=== PATIENT | male | born 1970 | race Caucasian/White ===

== ENCOUNTER → 2017-11-04 10:49 | Outpatient (CLI) | payer OTHER, SELFPAY ==
[2017-11-04 12:48] LABS: Free T3 3.1 pg/mL (2.18-3.98); T4 Free Direct 1.11 ng/dL (0.76-1.46); Thyroid Stim Hormone (TSH) 1.84 uIU/mL (0.358-3.74)
== END ==
PROVIDERS: Visit Provider Family Medicine
DX: E03.9 Hypothyroidism, unspecified (principal)
CPT/HCPCS: 36415; 84439; 84443; 84481

== ENCOUNTER → 2018-03-04 11:30 | Outpatient (CLI) | payer OTHER, SELFPAY ==
--- NOTE | 2018-03-04 16:09 | STRESSREP ---
Stress Test Report Treadmill EKG: Resting EKG: Normal sinus rhythm, normal axis, normal intervals, no evidence of previous myocardial infarction. Treadmill EKG: The patient exercise according to a Duran protocol for 9 minutes and 0 seconds achieving a maximum workload of 10.10 M ETS. Resting heart rate was initially 60 beats a minute iggy to max of 151 bpm which are presents 86% of the maximal age-predicted heart rate. Resting blood pressure was 138/86 and iggy to max of 190/80. Test was terminated due to leg discomfort. During exercise the patient's heart rate increased as expected. Patient had no dynamic EKG changes to suggest ischemia. No arrhythmias noted. Conclusions normal, adequate treadmill EKG. Negative for ischemia by EKG criteria. No anginal symptoms noted. No arrhythmias noted. Appropriate blood pressure response to exercise. Average exercise capacity for age. No complications.
== END ==
PROVIDERS: Visit Provider Family Medicine
DX: R07.9 Chest pain, unspecified (principal); R00.2 Palpitations
CPT/HCPCS: 93017

== ENCOUNTER → 2019-07-22 09:13 | Outpatient (CLI) | payer OTHER, SELFPAY ==
[2019-07-22 12:24] LABS: Basophil# 0.07 X10^3/uL; Basophil% 1.7 % (0-1); Eosinophils% 7.1 % (0-5); Hematocrit 50.2 % (40-54); Hemoglobin 17.1 g/dL (13.0-16.5); Lymphocyte % 35.6 % (19-41); Mean Corp Hgb Conc 34.1 g/dL (32-36); Mean Corpuscular Hgb 33.3 pg (27.0-32.0); Mean Corpuscular Volume 97.7 fL (80-94); Mean Platelet Vol. 10.2 fl (6.2-12.0); Monocyte# 0.29 X10^3/uL; Monocyte% 6.9 % (0-10); NRBC Flagged by Analyzer 0 % (0-5); Neutrophil # 2.04 X10^3/uL (2.7-7.7); Neutrophil % 48.5 % (47-70); Platelet Count 141 K/mm3 (150-450); RBC Distribution Width CV 11.6 % (11.6-14.6); Red Blood Count 5.14 M/mm3 (4.6-6.2); White Blood Count 4.2 K/mm3 (4.4-11.0)
[2019-07-22 12:53] LABS: ALB/GLOB Ratio 1.3 RATIO (0.9-2.4); AST(SGOT) 44 U/L (15-37); Alanine Aminotransfer ALT/SGPT 64 U/L (16-61); Albumin, Serum 3.9 g/dL (3.2-5.0); Alkaline Phosphatase 85 U/L (45-117); Anion Gap 7 (5-15); BUN 13 mg/dL (7-18); BUN/Creat Ratio 12.9 RATIO (10-20); Calcium,Total 9.4 mg/dL (8.5-10.1); Chloride 110 mmol/L (98-107); Cholesterol 214 mg/dL (200); Creatinine, Serum 1.01 mg/dL (0.70-1.30); EST Glomerular Filtration Rate 84 mL/min (>60); Est Glom Filt Rate - Afr Amer 102 mL/min (>60); Glucose 106 mg/dL (74-106); High Density Lipoprotein 42 mg/dL; Protein, Total 6.9 g/dL (6.4-8.2); Sodium Level 142 mmol/L (136-145); Thyroid Stim Hormone (TSH) 3.71 uIU/mL (0.358-3.74); Triglycerides 146 mg/dL; Very Low Density Lipoprotein 29 mg/dL (5-40)
== END ==
PROVIDERS: PCP Family Medicine; Visit Provider Family Medicine
DX: E03.9 Hypothyroidism, unspecified (principal); E78.5 Hyperlipidemia, unspecified; F31.9 Bipolar disorder, unspecified
CPT/HCPCS: 36415; 80053; 80061; 84443; 85025

== ENCOUNTER → 2020-02-10 09:17 | Outpatient (CLI) | payer OTHER, SELFPAY ==
[2020-02-10 12:45] LABS: AST(SGOT) 70 U/L (15-37); Alanine Aminotransfer ALT/SGPT 78 U/L (16-61); Albumin, Serum 3.8 g/dL (3.2-5.0); Alkaline Phosphatase 91 U/L (45-117); Bilirubin, Direct 0.37 mg/dL (0.00-0.30); Globulin 3.4 g/dL (2.2-4.2); Protein, Total 7.2 g/dL (6.4-8.2); Thyroid Stim Hormone (TSH) 7.92 uIU/mL (0.358-3.74)
== END ==
PROVIDERS: PCP Family Medicine; Visit Provider Family Medicine
DX: E03.9 Hypothyroidism, unspecified (principal); R74.0 Nonspecific elevation of levels of transaminase and lactic acid dehydrogenase [LDH]
CPT/HCPCS: 36415; 80076; 84443

== ENCOUNTER → 2020-02-22 09:51 | Outpatient (CLI) | payer OTHER, SELFPAY ==
--- NOTE | 2020-02-22 09:55 | US_ITS ---
STUDY: ABDOMINAL ULTRASOUND - RIGHT UPPER QUADRANT REASON FOR VISIT: Male, 50 years old elevated liver enzymes TECHNIQUE: Ultrasound evaluation of the right upper quadrant was performed with real-time and static marsh-scale imaging. TECHNICAL QUALITY: Adequate. COMPARISON: None. FINDINGS: Liver: The liver measures 18.0 cm. There is increased echogenicity consistent with fatty infiltration. The bile ducts are within normal limits. There is hepatic color flow. The direction of portal flow is hepatopetal. There is no demonstrated mass lesion. Gallbladder: Normal distended gallbladder. The gallbladder wall measures 2.7 mm. There is a negative sonographic Patel''s sign. There is no pericholecystic fluid. There are multiple echogenic structures within the gallbladder, consistent with multiple gallstones. Common Bile Duct (C.B.D.): The common bile duct measures 3.4 mm. Pancreas: There is nonvisualization of the pancreas due to overlying bowel gas. Right Kidney: Normal size of the right kidney. The right kidney measures 12.8 cm x 5.8 cm x 4.9 cm. Normal renal cortex. The right cortex measures 1.5 cm. There is no demonstrated renal mass or cyst. There is no right hydronephrosis. US/Abdomen Limited IMPRESSION: Fatty infiltration of the liver. Multiple gallstones. Electronically Signed: Layo Diaz, at 11:02 EDT , Service support ,
== END ==
PROVIDERS: PCP Family Medicine; Referring Provider Family Medicine; Visit Provider Family Medicine
DX: R74.0 Nonspecific elevation of levels of transaminase and lactic acid dehydrogenase [LDH] (principal)
CPT/HCPCS: 76705

== ENCOUNTER → 2020-04-13 09:32 | Outpatient (CLI) | payer OTHER, SELFPAY | PROVIDERS: PCP Family Medicine; Visit Provider Family Medicine | DX: E03.9 Hypothyroidism, unspecified (principal) | CPT/HCPCS: 36415; 84443 ==

== ENCOUNTER → 2020-07-28 12:05 | Outpatient (CLI) | payer MEDICAID, SELFPAY ==
[2020-07-28 15:43] LABS: Absolute Lymphocyte Count 1.32 X10^3/uL (0.83-4.51); Absolute Neutrophil Count 2.3 X10^3/uL (2.0-7.7); Basophil# 0.05 X10^3/uL; Basophil% 1.2 % (0-1); Eosinophil# 0.12 X10^3/uL; Eosinophils% 2.8 % (0-5); Hematocrit 46.3 % (40-54); Lymphocyte # 1.32 X10^3/ul (4.0); Mean Corp Hgb Conc 34.6 g/dL (32-36); Mean Corpuscular Hgb 34.9 pg (27.0-32.0); Mean Corpuscular Volume 100.9 fL (80-94); Mean Platelet Vol. 9.7 fl (6.2-12.0); Monocyte# 0.42 X10^3/uL; Monocyte% 9.9 % (0-10); NRBC Flagged by Analyzer 0 % (0-5); Neutrophil # 2.34 X10^3/uL (2.7-7.7); Neutrophil % 54.9 % (47-70); POSITIVE COUNT YES; Platelet Count 70 K/mm3 (150-450); RBC Distribution Width CV 12.9 % (11.6-14.6); RBC Distribution Width SD 48.2 fl (35.1-43.9); Red Blood Count 4.59 M/mm3 (4.6-6.2); White Blood Count 4.3 K/mm3 (4.4-11.0)
[2020-07-28 15:56] LABS: ALB/GLOB Ratio 1.2 RATIO (0.9-2.4); AST(SGOT) 95 U/L (15-37); Alanine Aminotransfer ALT/SGPT 63 U/L (16-61); Albumin, Serum 3.8 g/dL (3.2-5.0); Alkaline Phosphatase 97 U/L (45-117); Anion Gap 4 (5-15); BUN 6 mg/dL (7-18); BUN/Creat Ratio 7.1 RATIO (10-20); Chloride 108 mmol/L (98-107); Creatinine, Serum 0.85 mg/dL (0.70-1.30); EST Glomerular Filtration Rate 102 mL/min (>60); Est Glom Filt Rate - Afr Amer 123 mL/min (>60); Globulin 3.2 g/dL (2.2-4.2); Glucose 89 mg/dL (74-106); Potassium 3.8 mmol/L (3.5-5.1); Sodium Level 140 mmol/L (136-145); Thyroid Stim Hormone (TSH) 3.53 uIU/mL (0.358-3.74)
[2020-07-28 16:14] LABS: Differential Indicated SCAN CRITERIA MET
[2020-07-28 16:29] LABS: Differential Comment SCANNED
[2020-07-28 16:30] LABS: Platelet Estimate MOD DEC (ADEQ)
== END ==
PROVIDERS: PCP Family Medicine; Visit Provider Family Medicine
DX: E03.9 Hypothyroidism, unspecified (principal); K76.0 Fatty (change of) liver, not elsewhere classified; R42 Dizziness and giddiness
CPT/HCPCS: 36415; 80053; 84443; 85025

== ENCOUNTER 2022-02-05 07:44 | Day surgery (SDC) | payer OTHER, MEDICAID, SELFPAY ==
--- NOTE | 2022-01-30 08:22 | EKG12_ITS ---
Test Reason : PRE OP Blood Pressure : / mmHG Vent. Rate : 048 BPM Atrial Rate : 048 BPM P-R Int : 122 ms QRS Dur : 098 ms QT Int : 446 ms P-R-T Axes : 030 045 024 degrees QTc Int : 398 ms Sinus bradycardia Otherwise normal ECG Confirmed by BUCK JIN, LANDON ([id number]), market editor AMY CASILLAS ([id number]) on 01/30/2022 12:49:44 PM Referred By: Freedom Blue Confirmed By:LANDON JANE MD
[2022-02-05] VITALS (7 sets, daily range): BP systolic 121–163; BP diastolic 72–89; PULSE 54–87; RESP 16–18; TEMP 36.6–36.9; O2SAT 92–98; BMI 28.8
--- NOTE | 2022-02-05 | GALL_PTH ---
PATIENT: CATHY CERDA LOC: [facility] [place][id number] AGE/SX: 51/M ROOM: RE02/05/[address]: Dr. Freedom Blue MD : 1970 BED: DIS: 02/05/2022 SPEC #: [id number] RECD: 02/05/22 13:24 STATUS: BASHIR REGuillermo #: [id number] SHIMON: 02/05/22 00:[address]: Freedom Blue DEPT: SURGICAL PATHOLOGY RECD BY: Reagan Felipe ENTERED: 02/05/22 13:24 SP TYPE: JOURDAN GREY DR: Dr. Rhiannon Loco MD Tissues: A - Gallbladder, NOS B - Liver, NOS Procedures: PAS with Diastase (control) Trichrome (control) Special Stain Group II PAS Stain (control) Surgery Specimen Level III Surgery Specimen Level IV Retic (control) Iron Stain (control) HEADER OPERATION: Laparoscopic cholecystectomy with IOC PRE-OP DIAGNOSIS: Cholelithiasis, biliary colic TISSUE SUBMITTED: A ? Gallbladder, B ? Liver biopsy MICROSCOPIC DIAGNOSIS A. Gallbladder, cholecystectomy: Chronic cholecystitis and cholelithiasis. B. Liver, core biopsy: Chronic hepatitis, grade 1, stage 4 (cirrhosis) See comment. AM:reginald 02/06/2022 COMMENT Trichrome stain reveals broad band fibrosis with architectural distortion and bridging consistent with cirrhosis. Iron stain reveals increased (2/4) intraparenchymal deposition of iron. Reticulin stain confirms bridging fibrosis with a normal hepatic parenchymal architecture. PAS and PASD reveal no accumulation of abnormal proteins. All matched controls are appropriate. Modified Knodell scoring system for chronic hepatitis was used in the evaluation of this case. Note, the architectural distortion and broad band fibrosis is consistent with cirrhosis. Clinical correlation is suggested. Case has been reviewed in consultation with Dr. Jeffery who concurs with the above diagnosis. IDC:MARAL MICROSCOPIC DESCRIPTION Slides are reviewed. GROSS DESCRIPTION A - Received is one container labeled with the patient's name and designated gallbladder. The specimen consists of a gallbladder measuring 12 cm in length and 3.5 cm in diameter. The external surface is pink-rodriguez, smooth and glistening for the most part. Focally it is granular, hemorrhagic and contains cautery artifact. The gallbladder contains a small amount of yellowish mucoid bile and contains multiple, multifaceted brown stones measuring in aggregate 7 x 7 x 3 cm and 0.5 to 1.5 cm in greatest dimension. The mucosa is bile-stained and without any mass lesions. The gallbladder wall measures up to 0.2 cm in thickness. Building Mover sections from the gallbladder and the cystic duct are submitted in one cassette. B - Received in fixative is one container labeled with the patient's name and designated liver biopsy. The specimen consists of an elongated piece of rodriguez soft tissue measuring 1.5 cm in length and 0.1 cm in diameter. The specimen is totally submitted in one cassette. / SJ:rg 02/05/2022 TC:3 CPT: 12743, 23461, 66287 x5
--- NOTE | 2022-02-05 08:15 | RAD_ITS ---
STUDY: INTRAOPERATIVE CHOLANGIOGRAM. REASON FOR EXAM: Male, 51 years old. RUQ pain, cholelithiasis FLUOROSCOPY TIME (if supplied): ( 11 seconds ) minutes/seconds. A cine loop of 69 images was obtained. TECHNIQUE: Intraoperative cholangiogram was performed by the surgeon. Imaging was submitted. COMPARISON: None. FINDINGS: The visualized intrahepatic biliary ducts are unremarkable. The common bile duct is unremarkable. No intraluminal filling defect is seen. There is free flow of contrast into the duodenum. RAD/Cholangiogram/ O R,Initial IMPRESSION: Unremarkable intraoperative cholangiogram. Electronically Signed: Layo Diaz MD at 12:38 EDT ,
[2022-02-05] MEDS: Lactated Ringers 1,000 ML 15 ML IV (08:19)
--- NOTE | 2022-02-05 08:31 | HP.PCM_ITS ---
History and Physical Date of Admission: 02/05/22 Intake Vital Signs ? 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 Required: No Is patient in pain?: Yes Pain scale (1-10): 3 Allergies strawberry Adverse Reaction (Severe, Verified 01/23/22 08:10) Rash Medications brimonidine 0.025 % eye drops (Lumify) 1 drp ophthalmic (eye) BID-QID PRN 01/10/22 [History Confirmed 01/23/22] hydroxyzine HCl 50 mg tablet 50 mg PO TID 01/10/22 [History Confirmed 01/23/22] ibuprofen 600 mg tablet 600 mg PO Q8H PRN 01/10/22 [History Confirmed 01/23/22] lamotrigine 200 mg tablet 200 mg PO DAILY 01/10/22 [History Confirmed 01/23/22] levothyroxine 150 mcg capsule 150 mcg PO DAILY 01/10/22 [History Confirmed 01/23/22] propranolol 20 mg tablet 20 mg PO BID 01/10/22 [History Confirmed 01/23/22] sildenafil 100 mg tablet 100 mg PO DAILY PRN 01/10/22 [History Confirmed 01/23/22] timolol 0.5 % eye drops 1 drp ophthalmic (eye) BID 01/10/22 [History Confirmed 01/23/22] valacyclovir 1 gram tablet (Valtrex) 1,000 mg PO BID 01/10/22 [History Confirmed 01/23/22] PFSH Medical History? Bipolar disease, chronic Erectile dysfunction Genital herpes Glaucoma Hyperlipemia Hypothyroid Non-alcoholic fatty liver disease Rosacea Venous stasis Surgical History? History of carpal tunnel surgery History of eye surgery Family History?(Updated 01/23/22 @ 08:09 by Ling Nugent) Father DiabetesMother Diabetes Cancer ?? ? Thyroid cancer Heart diseaseSister Asthma Social History? current occupational status:? 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 current alcohol intake frequency: a few times a week Alcohol type: hard liquor details:? heavy in past, less now substance use type:? marijuana HPI HPI HPI: CATHY CERDA, is a 51 M who presents to the office today for right upper quadrant pain.? Patient says that he has been having this for years.? He was diagnosed with cholelithiasis a year ago.? He says he had an attack last week which caused pain rating to the right flank and right shoulder.? He also had nausea. ROS General General: Yes weight change; No appetite, fatigue, colon cancer, breast cancer or weakness Additional Details: 60lb weigh loss d/t quitting drinking 11months ago. HEENT HEENT: Yes eye surgery; No difficulty swallowing, eye injury, swollen glands or hoarseness Endo Endocrine: Yes thyroid disease; No diabetes mellitus, thyroid cancer, Hair loss, heat intolerance or cold intolerance Skin Skin: No rash or changing moles Breast Breast: No left breast lump, right breast lump, nipple discharge, breast pain, abnormal mammogram, abnormal US or breast enlargement Musc Musculoskeletal: Yes back problems; No arthritis, rheumatoid arthritis, gout or joint pain Cardio Cardiovascular: No murmur, pacemaker, heart disease, atrial fibrillation, high blood pressure, heart attack, heart stent, palpitations, shortness of breat with exertion or chest pain Psych Psychiatric: No depression, anxiety or hearing voices Resp Respiratory: No shortness of breath, No sleep apnea, No cough, No COPD, No asthma, No emphysema and No wheezing Gastro Gastrointestinal: No abdominal pain, Yes nausea or vomiting, No diarrhea, No constipation, No blood in stool, No acid reflux, No hemorrhoids, No ulcers, Yes gallbladder problem and No black,tarry stools Omi Hematologic: No blood thinners, No blood disorders, No bleeding, No anemia and No blood clots Neuro Neurologic: No system reviewed and no additional complaints, except as documented, No as per HPI, No abnormal gait, No abnormal hearing, No abnormal movements, No abnormal speech, No behavioral changes, No burning sensations, No confusion, No convulsions, No disequilibrium, No dizziness, No localized weakness, No frequent falls, No headache(s), No lack of coordination, No loss of vision, No memory loss, No numbness, No other visual disturbances, No radicular pain, No restless legs, No sensory deficit, No syncope, No tingling, No tremor(s), No weakness and No other Exam Const General: cooperative Orientation: alert and oriented x3 HENMT Head: normal to inspection Neck Neck: normal visual inspection and full ROM Chest Chest palpation & inspection: normal inspection of the chest Resp Effort & Inspection: normal respiratory effort Auscultation: clear to auscultation bilaterally Cardio Rate: regular rate Rhythm: regular rhythm GI Inspection: non-distended Palpation: soft and nontender Skin General: no rashes or lesions noted Neuro General: patient alert and patient oriented x3 Extrem General: full ROM Psych Appearance: grossly normal Mental Status: mental status grossly normal Assessment and Plan Assessment and Plan (1) Cholelithiasis: ?Status:?Acute (2) Biliary colic: ?Status:?Acute Plan Patient has cholelithiasis and biliary colic symptoms and I recommended laparoscopic cholecystectomy.? I discussed the procedure in detail with the patient.? I discussed the risks, benefits, and alternatives of the procedure.? I discussed the risks including but not limited to bleeding, infection, injury to surrounding organs such as the liver, bile duct, bowels.? I did discuss the possibility of having to convert to an open procedure as well as the possibility that if any injuries occurred this may necessitate further surgery at a tertiary care center. Freedom Blue MD Pager: [facility] [address] [place] [address], [address] [place] [address] Office: I have re-examined the patient. There are no clinical changes since date of exam.
[2022-02-05] MEDS: Cefotetan 2 GM in 0.9% NS 100 ML IV (09:11)
[2022-02-05] MEDS: Bupivacaine 0.25% 30 ML Vial (10:23)
--- NOTE | 2022-02-05 10:23 | OP.PCM_ITS ---
Report of Operation Date of Procedure: 02/05/22 Pre-Operative Diagnosis: Cholelithiasis and right upper quadrant pain Post-Operative Diagnosis: Chronic cholecystitis, possible cirrhosis of the liver Surgery/Procedure Performed:: 1. Laparoscopic cholecystectomy with cholangiogra m 2. Laparoscopic liver biopsy Description of Surgical Findings:: Patient had findings suggestive of cirrhosis, liver biopsies were obtained. IOC was normal. Significant inflammation suggesting chronic cholecystitis, wound class contaminated. Specimen's removed: Gallbladder and contents Liver biopsy Description of Procedure: After obtaining informed consent patient was brought back to the operating room. General anesthesia was induced. The abdomen was prepped and draped in usual sterile fashion. A small midline incision was made superior to the umbilicus and deepened to the level of fascia. The fascia was elevated and incised. Next the peritoneum was elevated and incised in the same fashion. Finger sweep was performed and the Elizabeth trocar was placed into the abdomen. The balloon was inflated. The abdomen was inflated to 15 mmHg. Next a camera was introduced into the abdomen and the abdomen was inspected. Next under direct visualization three 5-mm ports were placed one subxiphoid and 2 subcostal. Next the gallbladder was elevated and retracted toward the right shoulder. The peritoneum was stripped from the gallbladder. The infundibulum was located and retracted laterally. The liver appeared cirrhotic. Next the triangle of Calot was dissected and the cystic duct and cystic artery were identified. Cholangiograms were performed. A small pati was made in the right upper quadrant and the Ranfac catheter was placed into the abdomen. A small pati was made in the cystic duct and the Ranfac was placed into the cystic duct and clips placed over this. Under fluoroscopy contrast was instilled into the gallbladder and the common duct, cystic duct as well as proximal hepatic ducts were identified. There was good filling of the duodenum. There were no filling defects noted in the common bile duct. The clamp was removed as well as the needle and the infundibulum was grasped once more. Three hemolock clips were placed across the cystic duct. The cystic duct was then divided leaving 2 clips on the stump. The cystic artery was clipped and divided in the same fashion. The hook cautery was then used to take the gallbladder off of the gallbladder bed. Hemostasis was obtained. Gallbladder fossa was irrigated and no active bleeding or bile leakage was noted. Next the camera was introduced in the subxiphoid port. An Endopouch bag was placed through the umbilical port and the gallbladder was placed into it. The gallbladder was then removed through the umbilical incision. The camera was then reinserted through the umbilical port. The gallbladder fossa was inspected once more and noted to be hemostatic with no leaking bile. Arron-Cut biopsy needle was placed into the right lobe of the liver and biopsy was obtained. The liver edge was then cauterized using electrocautery to maintain hemostasis. The abdomen was suctioned dry. The 5 mm ports were removed under direct visualization. The umbilical port was then removed and the air was removed from the abdomen. Next using an 0 Vicryl suture the umbilical fascia was closed in a [id number] fashion. The umbilical port site was irrigated local anesthetic was administered to all the incisions. All the incisions were closed with interrupted subcuticular 4-0 Monocryl sutures followed by Steri-Strips and dressings. The patient was awoken and taken to PACU in stable condition. Admit VTE Documentation VTE Mechan Device Prophylaxis: SCD's
--- NOTE | 2022-02-05 10:25 | DCINST_ITS ---
Discharge Instructions Procedure Gallbladder Diet Discharge Diet: Light diet - advance as tolerated Activity Discharge Activity: May Not Drive (for 2-3 days or while taking narcotic pain medications.) and - (Do not drive, work heavy equipment or sign legal documents for 24 hours.) May shower in (days): 1 Lifting Restrictions: 20 lbs for 2 weeks Additional Activity Instructions:: Pain medication may cause nausea. You should typically eat light foods as you take your pain medications. Pain medication may also cause constipation. If this is a problem for you, please discuss with your doctor. Dressing / Incision Call your doctor if your incision/area has: Continuous Slow Oozing, Sudden Increased Bleeding, Increased Pain/ Swelling, Increased Redness and Foul Smelling Discharge Call your doctor if you observe: Fever of 101 or Higher Suture Line Care: Avoid Pulling/Pushing and Avoid Pinching/Bending Remove Dressing in: 2 days Additional Dressing/Incision Instructions:: Leave operative bandaids on for 2 days. When you remove dressing, leave Steri-Strips on until your follow-up appointment, or until the Steri-Strips fall off on their own. Follow Up Care Please Follow Up With: Freedom Blue MD When: Please call to schedule 2 week follow up appointment. [phone] Test Results: Test results from this visit will be discussed in further detail at your follow- up appointment, if applicable. Discharge Plan Admission Attending Provider: Freedom Blue Primary Care Provider: Rhiannon Loco Discharge Orders/Prescriptions Prescriptions: New oxycodone-acetaminophen [Percocet] 5-325 mg tablet 1 tab PO Q4H PRN (Reason: pain) 5 Days Qty: 20 0RF No Action hydroxyzine HCl 50 mg tablet 50 mg PO DAILY ibuprofen 600 mg tablet 600 mg PO DAILY lamotrigine 200 mg tablet 200 mg PO DAILY levothyroxine 150 mcg capsule 150 mcg PO DAILY propranolol 20 mg tablet 20 mg PO DAILY valacyclovir [Valtrex] 1 gram tablet 1,000 mg PO PRN PRN (Reason: HERPES) atorvastatin 20 mg Tablet 20 mg PO QHS Referrals / Follow Up: Rhiannon Loco MD [Primary Care Provider] - Disposition Disposition (needs filled in before D/C Order can be placed): Home, Self Care
[2022-02-05] MEDS: Acetaminophen 325 MG Tablet PO (12:07)
[2022-02-05] MEDS: oxyCODONE 5 MG Tablet PO (12:07)
== END 2022-02-05 12:52 | disposition home or self-care (01) ==
LOC: SDC 07:48 → AC 07:49
PROVIDERS: Anesthesiology; PCP Family Medicine; Referring Provider Surgery; Visit Provider Surgery
PROC: (CPT 47610; principal; 2022-02-05 08:55)
DX: K80.64 Calculus of gallbladder and bile duct with chronic cholecystitis without obstruction (principal); K74.60 Unspecified cirrhosis of liver; F31.9 Bipolar disorder, unspecified; K73.9 Chronic hepatitis, unspecified; E78.5 Hyperlipidemia, unspecified; E03.9 Hypothyroidism, unspecified; Z79.890 Hormone replacement therapy; Z79.899 Other long term (current) drug therapy
CPT/HCPCS: 47563; 47379; 36415; 74300; 76000; 84443; 88304; 88305; 88313; 93005; J7120; J2405

== ENCOUNTER 2022-02-26 06:31 | Day surgery (SDC) | payer OTHER, MEDICAID, SELFPAY ==
[2022-02-26] VITALS (7 sets, daily range): BP systolic 66–102; BP diastolic 24–65; PULSE 55–76; RESP 16–18; TEMP 36.2–36.7; O2SAT 98–100; BMI 26.6
[2022-02-26] MEDS: Lactated Ringers 1,000 ML 15 ML IV (07:03)
--- NOTE | 2022-02-26 07:30 | COLBX_PTH ---
PATIENT: CATHY CERDA LOC: [facility] U#:[id number] AGE/SX: 52/M ROOM: RE02/26/[address]: Dr. Freedom Blue MD : 1970 BED: DIS: 02/26/2022 SPEC #: [id number] RECD: 02/26/22 10:15 STATUS: BASHIR ANNALISE #: [id number] SHIMON: 02/26/22 07:[address]: Freedom Blue DEPT: SURGICAL PATHOLOGY RECD BY: Ysabel Hankins ENTERED: 02/26/22 11:45 SP TYPE: COLON BX OTHR DR: Dr. Rhiannon Loco MD Tissues: Sigmoid colon biopsy Procedures: Surgery Specimen Level IV HEADER OPERATION: Colonoscopy ? open access (MAC) with polypectomy PRE-OP DIAGNOSIS: Screening TISSUE SUBMITTED: Sigmoid colon polyp MICROSCOPIC DIAGNOSIS Sigmoid colon polyp, polypectomy: Tubular adenoma. SJ:reginald 02/27/2022 MICROSCOPIC DESCRIPTION Slides are reviewed. GROSS DESCRIPTION Received in fixative is one container labeled with the patient's name and designated sigmoid colon polyp. The specimen consists of a rodriguez-pink polyp measuring 0.8 x 0.5 x 0.4 cm. The specimen is totally submitted in one cassette. / SJ:rg 02/26/2022 TC:1 CPT: 97243
--- NOTE | 2022-02-26 07:47 | HP.PCM_ITS ---
HPI - General HPI Narrative CATHY CERDA, is a 52 M who presents for screening colonoscopy. Patient denies any abdominal pain or blood in the stool. No family history of colon cancer. Patient is never had a colonoscopy before. [facility] Medical History (Updated 02/19/22 @ 15:02 by Jayne Ledesma) Alcohol use Back pain Bipolar disease, chronic Cirrhosis Erectile dysfunction Genital herpes Glaucoma History of edema History of IBS History of pain when walking History of stress test Hyperlipemia Hypothyroid Leg cramps Marijuana use Non-alcoholic fatty liver disease Non-smoker Panic attack Paranoid disorder Rosacea Schizoaffective disorder Substance abuse Venous stasis Wears glasses Home Medications lamotrigine 200 mg tablet 200 mg PO DAILY 01/10/22 [History Last Taken Unknown] levothyroxine 150 mcg capsule 150 mcg PO DAILY 01/10/22 [History Last Taken Unknown] propranolol 20 mg tablet 20 mg PO DAILY 01/10/22 [History Last Taken Unknown] valacyclovir 1 gram tablet (Valtrex) 1,000 mg PO PRN PRN HERPES 01/10/22 [History Last Taken Unknown] atorvastatin 20 mg tablet 20 mg PO QHS 01/29/22 [History Last Taken Unknown] Allergy/AdvReac Type Severity Reaction Status Date / Time strawberry AdvReac Severe Rash Verified 02/26/22 06:54 Family History (Updated 01/23/22 @ 08:09 by Ling Nugent) Father Diabetes Mother Diabetes Cancer Thyroid cancer Heart disease Sister Asthma Surgical History (Updated 02/19/22 @ 15:02 by Jayne Ledesma) History of carpal tunnel surgery History of eye surgery Hx laparoscopic cholecystectomy Hx of tonsillectomy Social History current occupational status: employed 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 Smoking Status: Never smoker alcohol intake: current alcohol intake frequency: a few times a week Alcohol type: hard liquor details: heavy in past, less now substance use type: marijuana Past Medical/Surgical History Planned Operation Planned Operative Procedure/s: CSCOPE OA Previous Hospitalizations/Surgeries HX Hospitalizations: No Any Problems With Anesthesia: Yes (STATES GETS VERBALLY NASTY AFTER ANESTHESIA) You/Your Family Experience Fever (Hyperthermia) With Anes: No Cholinesterase deficiency: No Cardiovascular Hx Hypertension: No Respiratory Hx Sleep Apnea: No Hx Respiratory Tract Infection/Cold (presently): No Do You Snore Loudly (louder than talking or can be heard): Yes Do You Often Feel Tired/ Fatigued/ Sleepy Dring Daytime?: Yes Has Anyone Observed You Stop Breathing During Sleep?: No Result (for STOP score): Positive Smoking Status: Never smoker Neurological Does patient have nerve stimulator: No Miscellaneous Recent Exposure to Contagious Disease: No Allergies strawberry Adverse Reaction (Severe, Verified 02/26/22 06:54) Rash Discharge Is Pt Admitted From a Penitentiary, or a Senior Living: No After D/C, Where Do you Plan to Go: Return Home Vital Signs Vital Signs Vital Signs: 02/26/22 06:53 02/26/22 06:56 Temperature 97.1 F L Temperature Source Temporal Pulse Rate 55 L Respiratory Rate 18 Respiratory Pattern Normal Blood Pressure 102/61 Blood Pressure Mean 74 Blood Pressure Source Monitor Blood Pressure Position Semi-Fowlers Blood Pressure Location Left Arm Pulse Ox 98 Oxygen Delivery Method Room Air Weight Weight: 208 lb Body Mass Index (BMI) 26.6 Physical Exam Const alert and oriented x3 Resp normal respiratory effort and normal air movement Cardio regular rate and regular rhythm GI soft to palpation, non-tender and non-distended Assessment & Plan Assessment/Plan (1) Encounter for screening for malignant neoplasm of colon: PLAN: I explained endoscopy in detail to the patient. I explained the risks including but not limited to stroke or heart attack with anesthesia, perforation of the GI tract, bleeding, infection. I explained that any of these could necessitate further emergency surgery. The patient understands and all questions were answered sufficiently. The patient wishes to proceed with procedure. Freedom Blue MD Pager: [facility] [address] [place] [address], [address] [place] [address] Office: Surgery Risks - Colonoscopy Risks Include but are not Limited To: Risks include but are not limited to: Bleeding, perforation requiring further surgery, inability to complete colonoscopy requiring barium enema.
--- NOTE | 2022-02-26 07:51 | OP.COLON_ITS ---
Patient Name: Ricki Dahl Procedure Date: 02/26/2022 7:18 AM Date of : 1970 Age: 52 Procedure: Colonoscopy Indications: Screening for colorectal malignant neoplasm Providers: Freedom Blue MD Medicines: Monitored Anesthesia Care Patient Profile: This is a 52 year old male. Refer to note in patient chart for documentation of history and physical. Last Colonoscopy: none. The patient's first colonoscopy is today. Complications: No immediate complications. Procedure: Pre-Anesthesia Assessment: - Prior to the procedure, a History and Physical was performed, and patient medications and allergies were reviewed. The patient's tolerance of previous anesthesia was also reviewed. The risks and benefits of the procedure and the sedation options and risks were discussed with the patient. All questions were answered, and informed consent was obtained. Prior Anticoagulants: The patient has taken no previous anticoagulant or antiplatelet agents. After reviewing the risks and benefits, the patient was deemed in satisfactory condition to undergo the procedure. After I obtained informed consent, the scope was passed under direct vision. Throughout the procedure, the patient's blood pressure, pulse, and oxygen saturations were monitored continuously. The was introduced through the anus and advanced to the cecum, identified by appendiceal orifice and ileocecal valve. The colonoscopy was performed without difficulty. The patient tolerated the procedure well. The quality of the bowel preparation was good. Scope In: 7:27:46 AM Scope Withdrawal Time 0 hours 7 minutes 22 seconds Scope Out: 7:40:23 AM Total Procedure Duration Time 0 hours 12 minutes 37 seconds Findings: A medium polyp was found in the sigmoid colon. The polyp was sessile. The polyp was removed with a hot snare. Resection and retrieval were complete. The exam was otherwise without abnormality on direct and retroflexion views. Impression: - One medium polyp in the sigmoid colon, removed with a hot snare. Resected and retrieved. - The examination was otherwise normal on direct and retroflexion views. Recommendation: - Discharge patient to home. - Resume previous diet. - Continue present medications. - Await pathology results. - Repeat colonoscopy in 5 years for surveillance based on pathology results. Procedure Code(s): --- Professional --- 36773, Colonoscopy, flexible; with removal of tumor(s), polyp(s), or other lesion(s) by snare technique Diagnosis Code(s): --- Professional --- Z12.11, Encounter for screening for malignant neoplasm of colon D12.5, Benign neoplasm of sigmoid colon CPT copyright 2017 [employer]. All rights reserved. The codes documented in this report are preliminary and upon clinical coder review may be revised to meet current compliance requirements. Freedom Blue MD 02/26/2022 7:50:43 AM This report has been signed electronically. Number of Addenda: 0 Note Initiated On: 02/26/2022 7:18 AM
--- NOTE | 2022-02-26 07:52 | OP.CCLET_ITS ---
02/26/2022 Rhiannon Loco [place] [id number] [address] Re : Colonoscopy procedure for Ricki Dahl Dear Dr. Loco This procedure was performed on Saturday, February 26, 2022. My impressions and recommendations are as follows: Impressions : - One medium polyp in the sigmoid colon, removed with a hot snare. Resected and retrieved. - The examination was otherwise normal on direct and retroflexion views. Recommendations : - Discharge patient to home. - Resume previous diet. - Continue present medications. - Await pathology results. - Repeat colonoscopy in 5 years for surveillance based on pathology results. My findings are described in the full procedure note, which is enclosed. If I can be of further assistance, please feel free to contact me at Doctor phone number(s): , Work: . Sincerely, Freedom Blue MD 02/26/2022 7:50:43 AM This report has been signed electronically.
== END 2022-02-26 08:33 | disposition home or self-care (01) ==
LOC: EN 06:31 → AC 06:32
PROVIDERS: PCP Family Medicine; Referring Provider Family Medicine; Visit Provider Surgery
PROC: 0DJD8ZZ Inspection of Lower Intestinal Tract, Via Natural or Artificial Opening Endoscopic (ICD-10-PCS; CPT 45378; principal; 2022-02-26 07:25)
DX: Z12.11 Encounter for screening for malignant neoplasm of colon (principal); F25.9 Schizoaffective disorder, unspecified; F31.9 Bipolar disorder, unspecified; D12.5 Benign neoplasm of sigmoid colon; F41.0 Panic disorder [episodic paroxysmal anxiety]; E78.5 Hyperlipidemia, unspecified; E03.9 Hypothyroidism, unspecified; Z79.890 Hormone replacement therapy; Z79.899 Other long term (current) drug therapy
CPT/HCPCS: 45385; 88305; J7120; J2405

== ENCOUNTER → 2022-05-21 | Outpatient (CLI) | payer OTHER, SELFPAY ==
[2022-05-21 19:03] LABS: Hepatitis B Surface Antibody Non-Reactive; Hepatitis B Surface Antigen Non-Reactive (Nonreactive); Hepatitis C Antibody Non-Reactive (Nonreactive)
[2022-05-23 08:59] LABS: Hepatitis A AB, Total Negative (Negative)
== END | disposition home or self-care (01) ==
PROVIDERS: PCP Family Medicine; Visit Provider Family Medicine
DX: K70.30 Alcoholic cirrhosis of liver without ascites (principal)
CPT/HCPCS: 36415; 86706; 86708; 86803; 87340